=== PATIENT | male | born 1955 | race Caucasian/White ===

== ENCOUNTER 2022-12-02 09:26 | Day surgery (SDC) | payer OTHER, SELFPAY ==
[2022-11-26 13:59] VITALS: BMI 41.7
--- NOTE | 2022-11-29 08:25 | MHC.SHP ---
Pre-Procedural Eval Section A Date of Service: 11/29/22 The patient is an INPATIENT: No Changes since office visit: No Cold of Flu in the past 2 weeks, No New Medical Problems, No Changes in Medication and No Patient answered all questions The History & Physical has been completed within 30 days and I have reviewed it.: Yes Section B Chief Complaint: cataract,trab Allergies: Allergies Allergy/AdvReac Type Severity Reaction Status Date / Time metformin Allergy Unknown Verified 11/13/22 08:51 Plan Diagnosis/Plan: Unchanged I have reviewed the history and physical and performed a pertinent physical examination on my patient. No changes have occurred unless specified. Time Spent With Patient Time: Total time managing care of this patient today ____ minutes.
[2022-12-02 10:22] VITALS: BP 162/77; PULSE 77; RESP 18; TEMP 36.6; O2SAT 96
[2022-12-02 10:30] LABS: Glucose, Whole Blood 178 mg/dL (60-115)
--- NOTE | 2022-12-02 10:31 | P.CONAN_ITS ---
HPI - Anesthesia Eval Consult details Narrative: Right cataract [facility] Past Medical History Medical History ASHD (arteriosclerotic heart disease) BPH (benign prostatic hyperplasia) Depressive disorder Diabetic neuropathy Diabetic retinopathy Elevated cholesterol Extremity edema GERD (gastroesophageal reflux disease) HTN (hypertension) Hx of deep venous thrombosis Insomnia Multiple lipomas Obesity On anticoagulant therapy On beta rajiv at home MARIS on CPAP PLMD (periodic limb movement disorder) Seasonal allergies Type 2 diabetes mellitus treated with insulin Family History Family history of problems with anesthesia: No Surgical History Surgical History History of appendectomy History of esophagogastroduodenoscopy (EGD) Hx of cardiac cath Hx of colonoscopy S/P coronary artery bypass graft x 2 S/P repair of paraesophageal hernia History of Problems with Anesthesia: No Social History Social History Are you a primary healthcare educator to a significant other at home: No Do you presently have visiting nurse or other home services: No Patient Tobacco Use Status: Former Tobacco user Quit Date: 50 yrs ago Tobacco use type: Cigarette Use of substances other than those prescribed or required for medical reasons: Yes Substance Use Frequency: Occasionally Have you been hit, kicked, punched, or otherwise hurt by someone within the past year? If so, by whom?: No Are you DNR?: No Advance Directives: No Advance Directives Information Provided: Yes Advance Directives on File: No Recently lost weight without trying: No Eating poorly because of decreased appetite: No Nutrition Risks: No Nutritional Risk Meds Allergies Allergy/AdvReac Type Severity Reaction Status Date / Time metformin Allergy Unknown Verified 11/13/22 08:51 Active Medications: Current Medications Povidone Iodine (Povidone Iodine 5 % Ophth Soln 30 Ml Bottle) 1 appl EYE-RIGHT PREOP PRN PRN Reason: Pre-Op Surgical Implant Prophy Home Medications Medication Instructions Recorded Confirmed Last Taken Type apixaban 5 mg tablet (Eliquis) 1 tab PO BID 09/13/22 11/13/22 Unknown History atorvastatin 40 mg tablet 1 tab PO DAILY 09/13/22 11/13/22 Unknown History cholecalciferol (vitamin D3) 25 25 mcg PO DAILY 09/13/22 11/13/22 Unknown History mcg (1,000 unit) capsule (Vitamin D3) dorzolamide 22.3 mg-timolol 6.8 1 drp ophthalmic-Right BID 09/13/22 11/13/22 Unknown History mg/mL eye drops dulaglutide 1.5 mg/0.5 mL 0.5 ml subcut QWEEK 09/13/22 11/13/22 Unknown History subcutaneous pen injector (Trulicity) empagliflozin 25 mg tablet 1 tab PO QAM 09/13/22 11/13/22 Unknown History (Jardiance) insulin aspart U-100 100 unit/mL subcut 09/13/22 Unknown History (3 mL) subcutaneous pen (Novolog FlexPen U-100 Insulin aspart) insulin degludec 200 unit/mL (3 75 unit subcut BID 09/13/22 11/13/22 Unknown History mL) subcutaneous pen (Tresiba FlexTouch U-200 insulin) latanoprost 0.005 % eye drops 1 drp ophthalmic-Right BEDTIME 09/13/22 11/13/22 Unknown History lisinopril 20 mg tablet 1 tab PO DAILY 09/13/22 11/13/22 Unknown History lorazepam 2 mg tablet 1 tab PO BEDTIME 09/13/22 11/13/22 Unknown History metoprolol tartrate 100 mg tablet 1 tab PO BID 09/13/22 11/13/22 Unknown History multivitamin 1 tab PO DAILY 09/13/22 11/13/22 Unknown History tamsulosin 0.4 mg capsule 1 cap PO QPM 09/13/22 11/13/22 Unknown History zolpidem 12.5 mg tablet,extended 1 tab PO BEDTIME PRN insomnia 09/13/22 11/13/22 Unknown History release,multiphase Exam Exam Date and Time: December 02, 2022 1031 Height,Weight and Vital Signs: Height 5 ft 10 in Weight 132 kg Last Vital Signs Temp 98 F 12/02/22 10:22 Pulse 77 12/02/22 10:22 Resp 18 12/02/22 10:22 BP 162/77 H 12/02/22 10:22 Pulse Ox 96 12/02/22 10:22 O2 Del Method 12/02/22 10:22 Pertinent Lab Results Pertinent Lab Results: Laboratory Tests 12/02/22 10:26 POC Glucose 178 H Airway Mallampati Class: III TM Dist: <=3cm Neck ROM: Limited Partial: Upper and Lower Loose/Missing/Broken Teeth: Yes, Upper and Lower Heart: s/p CABG Lungs: ok Assessment and Plan Assessment Anesthesia Assessment: Anesthesia Plan Discussed and Chart Reviewed Final Anesthetic Review Family History of Problems with Anesthesia: No History of Problems with Anesthesia: No NPO: Yes ASA Class: IV Final Preanesthetic Review: No Changes in Pt Med Stat, Meds/Allgs Chart Reviewed, Consent Obtained/Reviewed and Anes Risks/Benef Reviewed Patient Risk: High Procedure Risk: Intermediate Anesthetic Plan Anesthetic Plan: MAC: and Agree w/ Assess. and Plan Disposition: Standard PACU
[2022-12-02] MEDS: Cyclopentolate 1 % Ophth Sol 2 ML DRPBTL 1 DROP EYE-RIGHT ×3 (10:37→10:39)
[2022-12-02] MEDS: Tetracaine HCl/PF 0.5% Oph Sol 4 ML DROPS 1 DROP EYE-RIGHT (10:37)
[2022-12-02] MEDS: Tropicamide 1 % Ophth Sol 3 ML BTL 1 DROP EYE-RIGHT ×3 (10:38→10:39)
[2022-12-02] MEDS: Ketorolac Tromethamine 0.5% Op 5 ML DROPS 1 DROP EYE-RIGHT ×3 (10:38→10:39)
[2022-12-02] MEDS: Phenylephrine HCL 2.5% Oph SoL 2 ML BOTTLE 1 DROP EYE-RIGHT ×3 (10:38→10:39)
[2022-12-02] MEDS: Lactated Ringers 1,000 ML 50 ML IVCONT (11:09)
--- NOTE | 2022-12-02 11:25 | P.PCNO_ITS ---
Ophthalmology Procedure Procedure Date of Service: 12/02/22 Ophthalmology Viscoelastic: Healsherrie Ellist Dual Pack Pro Ophthalmology Lenses: TECNIS CR8680 (22.5) Procedure Notes: PREOPERATIVE DIAGNOSIS: Decreased visual acuity right eye secondary to cataract and glaucoma. POSTOPERATIVE DIAGNOSIS: Same PROCEDURE: Right cataract extraction with intraocular lens insertion and trabe culectomy, right eye SURGEON: Larry Avila M.D. ANESTHESIA: Topical/MAC ESTIMATED BLOOD LOSS: None COMPLICATIONS: None After obtaining informed consent, the patient was brought to the operating room suite and placed in the supine position. After adequate sedation per anesthesia, topical drops of Tetracaine were given to the right eye. The eye was then prepped and draped in the usual sterile fashion. The operating room microscope was then positioned over the right eye and a lid speculum placed. 2% Lidocaine was instilled subconjunctivally. After awaiting 30 seconds, a paracentesis was created superiorly. Hemostasis was then achieved using wet field cautery. Mitomycin .4mg/ml was then placed in the conjunctival pocket and held in place for two minutes. The subconjunctival pocket was then irrigated copiously with 20 mls of BSS. Paracentesis was then created. Viscoelastic was then instilled into the anterior chamber. A crescent blade was then utilized to create a partial thickness sclera wound followed by advancement to clear cornea with the crescent blade. A keratome was then utilized to enter the anterior chamber. Capsulotomy forceps were then utilized to create a continuous circular tear capsulotomy. Hydrodissection and hydrodelineation were carried out until adequate mobilization of the nucleus occurred. Phacoemulsification was utilized to remove the dense central nucleus followed by removal of remnant cortical material utilizing the automated aspiration irrigation unit. Viscoelastic was then instilled into the posterior capsular bag followed by placement of a posterior chamber intraocular lens. Attention was then directed to create a trabeculectomy. A Saritha punch was then utilized to create the trabeculectomy. The residual Viscoelastic was then removed utilizing the automated IA machine. The egress of aqueous was evaluated and found to be appropriate. The conjunctiva was then closed with a 9-0 vicryl suture. BSS was then instilled into the anterior chamber creating a superior bleb, without obvious leakage. Intracameral injection of Vigamox 0.3%, 0.1 ml and subtenon injection of Kenalog-40 0.2 ml was given followed by an atropine drop. The patient tolerated the procedure well and will be followed up in the a.m.
[2022-12-02 12:13] VITALS: BP 142/70; PULSE 74; RESP 16; TEMP 37.3; O2SAT 100
[2022-12-02 12:18] VITALS: BP 136/66; PULSE 72; RESP 16; TEMP 36.9; O2SAT 100
== END 2022-12-02 12:30 | disposition home or self-care (01) ==
PROVIDERS: PCP Internal Medicine; Visit Provider Ophthalmology
PROC: (CPT 66984; principal; 2022-12-02 12:00)
DX: H25.11 Age-related nuclear cataract, right eye (principal); H40.1120 Primary open-angle glaucoma, left eye, stage unspecified; H40.033 Anatomical narrow angle, bilateral; H40.89 Other specified glaucoma; H52.4 Presbyopia; I10 Essential (primary) hypertension; E78.00 Pure hypercholesterolemia, unspecified; G47.33 Obstructive sleep apnea (adult) (pediatric); E11.3593 Type 2 diabetes mellitus with proliferative diabetic retinopathy without macular edema, bilateral; E11.40 Type 2 diabetes mellitus with diabetic neuropathy, unspecified; Z79.4 Long term (current) use of insulin; Z79.01 Long term (current) use of anticoagulants; Z79.899 Other long term (current) drug therapy; Z87.891 Personal history of nicotine dependence
CPT/HCPCS: 66984; 66170; 82947; J2250; J3010; J3301; J7315; V2632

== ENCOUNTER 2023-08-07 13:01 | Outpatient (REF) | payer OTHER, SELFPAY ==
[2023-08-07 13:15] VITALS: BMI 38.5
[2023-08-07 13:16] VITALS: BP 137/70; PULSE 88; RESP 16; TEMP 36.5; O2SAT 96
== END 2023-08-07 13:02 | disposition home or self-care (01) ==
LOC: HO.MS 13:01
PROVIDERS: PCP Internal Medicine; Visit Provider Ophthalmology
PROC: (CPT 66761; principal; 2023-08-07 13:00)
DX: H40.032 Anatomical narrow angle, left eye (principal)
CPT/HCPCS: 66761

== ENCOUNTER 2025-11-08 08:39 | Outpatient (AMB) | payer OTHER, SELFPAY ==
--- OUTSIDE RECORDS SUMMARY | 2025-09-19 10:30 | XMS_ITS ---
Author Organization [facility] Address [address] [place] [id number] Care Team Providers Care Web Design Instructor Name Role Phone Colleen GREWAL, Tanner Primary Care Provider Shanice Campos [phone] Encounters Encounter Location Date Provider Diagnosis [address] [address] 09/19/2025 Shanice Elliott Plan Of Treatment No Information Progress Notes * Flex CRAVENDOB: [birth year] (70 yo M)Acc No.[id number]:09/19/2025 Progress Note Patient: Flex HANCOCK Provider: Johann Elliott DPM :1955 A ge:70 Y S ex:Male Date:09/19/2025 Address:[address] [place], [place] [id number] Pcp:Tanner Macias MD Subjective: * Chief Complaints: * * Medical History: Objective: * Vitals: Assessment: Plan: * Treatment: * Images: * The named appointment provid er may or may not be the originator of this progress note, and it is not deemed complete until electronically signed by the appointment provider. Sign off status: Pending * Provider: Johann Elliott DPM Date: Generated for Printi ng/Faxing/eTransmitting on: 1 01/09/2025 09:19 AM EST
--- NOTE | 2025-11-08 08:51 | MHC.OFFVIS ---
Intake Visit Reasons: Urinary retention, BPH, VT Intake Note: New Patient is present for Urinary Retention / Voiding Trial , Enlarged Prtostate patient had a cath change on 11/05/25 has had blood in his urine since Urology Rx:Tamsulosin PVR:187mls Blood Thinners:Eliquis Imaging completed: Abd /Pelvis CT 09/19/25 Application Integration Specialist Required: No Accompanied by: Self / Same As Patient Allergies No Known Allergies Allergy (Verified 11/08/25 08:54) HPI Comments Details: Flex is a pleasant male. He is a patient of Dr. Macias. He is seen for the following urologic conditions - urinary retention - diabetic cystopathy Urinary retention in setting of diabetic cystopathy Had been seen for back pain at [facility] Found to have retention greater than 500 cc Marshall catheter placed Has been on tamsulosin longstanding Failed voiding trial in office today Discussed potential for intermittent catheterization versus Marshall catheter Would rather have Marshall catheter with cap Follow-up 4 weeks cystoscopy with voiding trial Start combination therapy PFSH Medical History (Updated 11/08/25 @ 09:28 by Marcell Underwood MD) Seasonal allergies On beta rajiv at home On anticoagulant therapy Elevated cholesterol MARIS on CPAP Hx of deep venous thrombosis Diabetic neuropathy Diabetic retinopathy PLMD (periodic limb movement disorder) Multiple lipomas Obesity Type 2 diabetes mellitus treated with insulin Insomnia GERD (gastroesophageal reflux disease) Extremity edema Depressive disorder BPH (benign prostatic hyperplasia) HTN (hypertension) ASHD (arteriosclerotic heart disease) Surgical History Hx of cardiac cath S/P repair of paraesophageal hernia Hx of colonoscopy S/P coronary artery bypass graft x 2 History of appendectomy History of esophagogastroduodenoscopy (EGD) Social History Are you a primary team primary care physician to a significant other at home: No Do you presently have visiting nurse or other home services: No Patient Tobacco Use Status: Former Tobacco user Tobacco use type: Cigarette Review of Systems Const Denies chills and Denies fever(s) Card Reports no additional complaints and Denies syncope Resp Denies cough GI Denies abdominal pain and Denies heartburn Reports as per HPI and Denies change in libido Neuro Denies syncope Psych Denies change in libido Endo Denies change in libido Physical Exam Const General: cooperative, healthy appearing, comfortable and no acute distress Orientation/consciousness: patient oriented x3 HEENT Face and sinus: Yes normal facial exam Mouth: moist mucous membranes Neck Neck: Yes normal visual inspection, Yes full ROM and Yes trachea midline Chest Chest palpation & inspection: normal inspection of the chest Resp Effort & Inspection: normal respiratory effort, able to speak in complete sentences and no respiratory distress GI Inspection: Yes normal to inspection Back/Spine/Pelvis Cervical Spine: normal cervical lordosis Thoracic/Lumbar Spine: thoracic and lumbar spine normal to inspection Skin General skin exam: no rashes or lesions noted Neuro General: patient oriented x3, gait normal, tone normal and moves all extremities Extrem General: Yes normal to inspection and Yes capillary refill normal Office Procedures Bladder/Catheter Procedure Details: Patient presents to office for voiding trial s/p urinary retention. 120mls sterile water instilled through catheter, patient tolerated well. Removed 16fr marshall catheter, patient tolerated removal well. Patient not able to void. Dr. Underwood in room for appointment. Per Dr. Underwood, reinsert catheter with flip valve. New 16fr marshall with 10mls inserted. Patient tolerated insertion. Some blood noted after insertion. Education given on the flip valve and to empty every 3-4 hours. patient know how to change management consultant to night bag and has supplies at home. Patient will f/u in 4 weeks for repeat voiding trial. 12431-Ocmaumlneu of Bladder 41654-Qogmwb Temporary Bladder Catheter Procedure code (CPT) selection complete Post Void Residual Post Residual Void Post Void Residual (PVR): 187 63508-Psgo Void Residual by ultrasound Assessment & Plan Assessment & Plan (1) Urinary retention with incomplete bladder emptying: Code(s): R33.9 - Retention of urine, unspecified Category: Medical (2) BPH (benign prostatic hyperplasia): Code(s): N40.0 - Benign prostatic hyperplasia without lower urinary tract symptoms Category: Medical Plan Start finasteride Switch from tamsulosin to terazosin 10 mg Orders: Orders AMB Bladder/Catheter Procedure 11/08/25 R33.9 - Retention of urine, unspecified Medications: New finasteride 5 mg PO DAILY 30 tabs 1RF 30 days R33.9 - Retention of urine, unspecified terazosin 10 mg PO BEDTIME 30 caps 1RF 30 days R33.9 - Retention of urine, unspecified Patient Instructions: This note is constructed using voice recognition software. While every effort has been made to ensure accuracy wastewater engineer errors may have been included. Imaging studies, laboratory and physical exam results were discussed and reviewed in detail. No major barriers to patient understanding were identified. An opportunity to ask questions regarding the treatment plan was provided. All questions were answered. The patient expressed understanding and agreement with the above treatment plan. The patient is aware they should contact our office by phone for worsening of their current condition or the appearance of new urologic symptoms. Compliance is encouraged with any medications and followup testing that is ordered. It is a privilege to participate in the urologic care of your patient. If you have any questions or concerns regarding treatment for the above conditions, or other urologic issues, please do not hesitate to contact me. The office telephone contact is [phone]. Sincerely, Dr Marcell Underwood MD, [facility] - Urology Compassionate Specialist Care for the Genitourinary System Coding Level of Care Code New Pt Level 4 (27726) Diagnoses Urinary retention with incomplete bladder emptying R33.9 BPH (benign prostatic hyperplasia) N40.0 CPT Codes Bladder/Catheter Procedure - CPT: 98034-Mzicjhqacg of Bladder ([id number]) Bladder/Catheter Procedure - CPT: 15701-Exsijl Temporary Bladder Catheter ([id number]) Post Residual Void - PVR CPT Code: 53543-Xxam Void Residual by ultrasound ([id number])
--- OUTSIDE RECORDS SUMMARY | 2025-11-08 09:18 | XMS_ITS | Encounter Summary ---
Author Organization [employer] Address [address] [place] [address] Care Team Providers Care Public Health Sanitarian Name Role Phone Samia Acosta MD Primary Care Provider + Encounter Details Date Type Department Care Team (Late st Contact Info) Description 09/22/2025 Lab Requisition [facility] [address] [facility] [place] [address] Samia Acosta MD [address] [id number] Type 2 diabetes mellitus without complications (CMS/HCC V24, CMS/HCC V28); Cellulitis, unspecified Social History Tobacco Use Types Packs/Day Years Used Date Smoking Tobacco: Never Assessed Sex and Gender Information Value Date Recorded Sex Assigned at Not on file Legal Sex Male 11:14 AM EDT Gender Identity Not on file Sexual Orientation Not on file documented as of this encounter Plan of Treatment Not on file documented as of this encounter Procedures Procedure Name Priority Date/Time Associated Diagnosis Comments COMPLETE BLOOD COUNT Routine 09/23/2025 7:15 AM EDT Type 2 diabetes mellitus without complications (CMS/HCC V24, CMS/HCC V28) Cellulitis, unspecified BASIC METABOLIC PANEL Routine 09/23/2025 7:15 AM EDT Type 2 diabetes mellitus without complications (CMS/HCC V24, CMS/HCC V28) Cellulitis, unspecified documented in this encounter Results * (ABNORMAL) Basic metabolic panel (09/23/2025 7:15 AM EDT) Sodium 140 133 - 145 mmol/L LAB CHEMISTRY METHOD 09/23/2025 9:41 AM EDT [facility] Potassium 3.6 3.5 - 5.5 mmol/L LAB CHEMISTRY METHOD 09/23/2025 9:41 AM [facility] Chloride 109 96 - 110 mmol/L LAB CHEMISTRY METHOD 09/23/2025 9:41 AM [facility] CO2 26 21 - 32 mmol/L LAB CHEMISTRY METHOD 09/23/2025 9:41 AM [facility] Anion Gap 5 3 - 11 LAB CHEMISTRY METHOD 09/23/2025 9:41 AM [facility] Glucose 68(L) 70 - 100 mg/dL LAB CHEMISTRY METHOD 09/23/2025 9:41 AM [facility] BUN 25 5 - 25 mg/dL LAB CHEMISTRY METHOD 09/23/2025 9:41 AM [facility] Creatinine 0.88 0.70 - 1.30 mg/dL LAB CHEMISTRY METHOD 09/23/2025 9:41 AM [facility] eGFR 94 >=60 mL/min/1. 73m2 LAB CHEMISTRY METHOD 09/23/2025 9:41 AM [facility] Comment:Calculation based on the Chronic Kidney Disease Epidemiology Collaboration (CKD-EPI) equation refit without adjustment for race. BUN/Creatinine Ratio 28.4 LAB CHEMISTRY METHOD 09/23/2025 9:41 AM [facility] Calcium 8.3(L) 8.5 - 10.5 mg/dL LAB CHEMISTRY METHOD 09/23/2025 9:41 AM [facility] Blood Venous blood specimen / Unknown Venipuncture / Unknown 09/23/2025 7:15 AM EDT 09/23/2025 8:27 AM EDT us Samia Acosta MD LAB BLOOD ORDERABLES Fin al Result [facility] [address] [place] [address], * Complete blood count (09/23/2025 7:15 AM EDT) [facility] WBC 7.7 4.8 - 10.8 K/mcL LAB HEMETOLOGY METHOD 09/23/2025 9:09 AM [facility] RBC 4.70 4.50 - 5.50 M/mcL LAB HEMETOLOGY METHOD 09/23/2025 9:09 AM [facility] Hemoglobin 14.0 13.5 - 17.5 g/dL LAB HEMETOLOGY METHOD 09/23/2025 9:09 AM [facility] Hematocrit 42.5 42.0 - 54.0 % LAB HEMETOLOGY METHOD 09/23/2025 9:09 AM [facility] MCV 89.7 79.0 - 98.0 FL LAB HEMETOLOGY METHOD 09/23/2025 9:09 AM [facility] MCH 29.5 27.0 - 32.0 pcg LAB HEMETOLOGY METHOD 09/23/2025 9:09 AM [facility] MCHC 32.9 32.0 - 37.0 g/dL LAB HEMETOLOGY METHOD 09/23/2025 9:09 AM [facility] RDW 13.1 11.0 - 15.0 % LAB HEMETOLOGY METHOD 09/23/2025 9:09 AM [facility] Platelets 189 130 - 400 K/mcL LAB HEMETOLOGY METHOD 09/23/2025 9:09 AM [facility] MPV 10.9 7.0 - 11.0 FL LAB HEMETOLOGY METHOD 09/23/2025 9:09 AM [facility] NRBC 0.0 <1.0 % LAB HEMETOLOGY METHOD 09/23/2025 9:09 AM [facility] NRBC Absolute 0.00 <0.10 K/mcL LAB HEMETOLOGY METHOD 09/23/2025 9:09 AM EDT [facility] Blood Venous blood specimen / Unknown Venipuncture / Unknown 09/23/2025 7:15 AM EDT 09/23/2025 8:27 AM EDT us Samia Acosta MD LAB BLOOD ORDERABLES Fin al Result [facility] [address] [place] [address], documented in this encounter Visit Diagnoses Diagnosis Type 2 diabetes mellitus without complications (CMS/HCC V24, CMS/HCC V28) Cellulitis, unspecified documented in this encounter Care Teams Public Health Sanitarian Relationship Specialty Start Date End Date Samia Acosta MD [address] [place] [id number] PCP - General Family Medicine 09/20/25 documented as of this encounter
--- OUTSIDE RECORDS SUMMARY | 2025-11-08 09:18 | XMS_ITS | Encounter Summary ---
Author Organization [facility] Address [address] [place] [address] Care Team Providers Care Yard Pilot Name Role Phone Samia Acosta MD Primary Care Provider + Encounter Details Date Type Department Care Team (Late st Contact Info) Description 09/23/[address] [facility] - Main Lab [address] [facility] [place] [address] Samia Acosta MD [address] [phone] Essential (primary) hypertension Social History Tobacco Use Types Packs/Day Years [...] Associated Diagnosis Comments COMPLETE BLOOD COUNT Routine 09/26/2025 6:54 AM EST Essential (primary) hypertension BASIC METABOLIC PANEL Routine 09/26/2025 6:54 AM EST Essential (primary) hypertension documented in this encounter Results * (ABNORMAL) Basic metabolic panel (09/26/2025 6:54 AM EST) Sodium 141 133 - 145 mmol/L LAB CHEMISTRY METHOD 09/26/2025 12:[address] [facility] Potassium 3.7 3.5 - 5.5 mmol/L LAB CHEMISTRY METHOD 09/26/2025 12:[address] [facility] Chloride 108 96 - 110 mmol/L LAB CHEMISTRY METHOD 09/26/2025 12:22 PM [facility] CO2 24 21 - 32 mmol/L LAB CHEMISTRY METHOD 09/26/2025 12:22 PM [facility] Anion Gap 9 3 - 11 LAB CHEMISTRY METHOD 09/26/2025 12:22 PM [facility] Glucose 68(L) 70 - 100 mg/dL LAB CHEMISTRY METHOD 09/26/2025 12:22 PM [facility] BUN 16 5 - 25 mg/dL LAB CHEMISTRY METHOD 09/26/2025 12:22 PM [facility] Creatinine 0.83 0.70 - 1.30 mg/dL LAB CHEMISTRY METHOD 09/26/2025 12:22 PM [facility] eGFR 95 >=60 mL/min/1. 73m2 LAB CHEMISTRY METHOD 09/26/2025 12:22 PM [facility] Comment:Calculation based on the Chronic Kidney Disease Epidemiology Collaboration (CKD-EPI) equation refit without adjustment for race. BUN/Creatinine Ratio 19.3 LAB CHEMISTRY METHOD 09/26/2025 12:22 PM [facility] Calcium 8.6 8.5 - 10.5 mg/dL LAB CHEMISTRY METHOD 09/26/2025 12:22 PM [facility] Blood Venous blood specimen / Unknown Venipuncture / Unknown 09/26/2025 6:54 AM EST 09/26/2025 11:01 AM EST us Samia Acosta MD LAB BLOOD ORDERABLES Fin al Result [facility] [address] [place] [address], * (ABNORMAL) Complete blood count (09/26/2025 6:54 AM EST) WBC 6.0 4.8 - 10.8 K/mcL LAB HEMETOLOGY METHOD 09/26/2025 11:[address] [facility] RBC 4.80 4.50 - 5.50 M/mcL LAB HEMETOLOGY METHOD 09/26/2025 11:36 AM [facility] Hemoglobin 14.5 13.5 - 17.5 g/dL LAB HEMETOLOGY METHOD 09/26/2025 11:36 AM [facility] Hematocrit 43.7 42.0 - 54.0 % LAB HEMETOLOGY METHOD 09/26/2025 11:36 AM [facility] MCV 90.3 79.0 - 98.0 FL LAB HEMETOLOGY METHOD 09/26/2025 11:36 AM [facility] MCH 30.0 27.0 - 32.0 pcg LAB HEMETOLOGY METHOD 09/26/2025 11:36 AM [facility] MCHC 33.2 32.0 - 37.0 g/dL LAB HEMETOLOGY METHOD 09/26/2025 11:36 AM [facility] RDW 13.0 11.0 - 15.0 % LAB HEMETOLOGY METHOD 09/26/2025 11:36 AM [facility] Platelets 212 130 - 400 K/mcL LAB HEMETOLOGY METHOD 09/26/2025 11:36 AM [facility] MPV 11.3(H) 7.0 - 11.0 FL LAB HEMETOLOGY METHOD 09/26/2025 11:36 AM [facility] NRBC 0.0 <1.0 % LAB HEMETOLOGY METHOD 09/26/2025 11:36 AM [facility] NRBC Absolute 0.00 <0.10 K/mcL LAB HEMETOLOGY METHOD 09/26/2025 11:36 AM [facility] Blood Venous blood specimen / Unknown Venipuncture / Unknown 09/26/2025 6:54 AM EST 09/26/2025 10:59 AM EST us Samia Acosta MD LAB BLOOD ORDERABLES Fin al Result [facility] [address] [place] [address], documented in this encounter Visit Diagnoses Diagnosis Essential (primary) hypertension Unspecified essential hypertension documented in this encounter Care Teams Yard Pilot Relationship Specialty Start Date End Date Samia Acosta MD [address] [place] [id number] PCP - General Family Medicine 09/20/25 documented as of this encounter
--- OUTSIDE RECORDS SUMMARY | 2025-11-08 09:19 | XMS_ITS | Encounter Summary ---
Author Organization [employer] Address [address] [place] [address] Care Team Providers Care Neurology Physician Name Role Phone Samia Acosta MD Primary Care Provider + Encounter Details Date Type Department Care Team (Late st Contact Info) Description 10/09/2025 Lab Requisition [facility] - Main Lab [address] [facility] [place] [address] Samia Acosta MD [address] [address] Essential (primary) hypertension Social History Tobacco Use Types Packs/Day Years Used Date Smoking Tobacco: Never Assessed Sex and Gender Information Value Date Recorded Sex Assigned at Not on file Legal Sex Male 11:14 AM EDT Gender Identity Not on file Sexual Orientation Not on file documented as of this encounter Plan of Treatment Not on file documented as of this encounter Visit Diagnoses Diagnosis Essential (primary) hypertension Unspecified essential hypertension documented in this encounter Care Teams Neurology Physician Relationship Specialty Start Date End Date Samia Acosta MD [address] [address] PCP - General Family Medicine 09/20/25 documented as of this encounter
--- OUTSIDE RECORDS SUMMARY | 2025-11-08 09:19 | XMS_ITS | Clinical Summary ---
Author Organization [address] [facility] Address [address] [place] [address] Phone Care Team Providers Care Chemistry Lecturer Name Role Phone Samia Acosta MD Primary Care Provider + Encounters Date Type Department Care Team Description 10/09/2025 Lab Requisition [facility] - Main Lab [address] [place] [address] Saima Acosta MD Essential (primary) hypertension 09/30/2025 Lab Requisition [facility] [address] [place] [address] Samia Acosta MD Essential (primary) hypertension 09/23/2025 Lab Requisition [facility] - Main Lab [address] [place] [address] Samia Acosta MD Essential (primary) hypertension 09/22/2025 Lab Requisition [facility] - Main Lab [address] [place] [address] Samia Acosta MD Type 2 diabetes mellitus without complications (CMS/HCC V24, CMS/HCC V28); Cellulitis, unspecified 09/22/2025 Lab Requisition [facility] Lab [address] [place] [address] Samia Acosta MD Hematuria, unspecified 09/20/2025 Lab Requisition [facility] - Main Lab [address] [place] [address] Samia Acosta MD Essential (primary) hypertension from Last 3 Months Social History Tobacco Use Types Packs/Day Years Used Date Smoking Tobacco: Never Assessed Sex and Gender Information Value Date Recorded Sex Assigned at Not on file Legal Sex Male 11:14 AM EDT Gender Identity Not on file Sexual Orientation Not on file Plan of Treatment Health Maintenance Due Date Last Done Comments Colorectal Cancer Screening: Colonoscopy 1957 Diabetes: Annual Foot Exam 1967 Diabetes: Annual Retina Eye Exam 1967 DTaP,Tdap,and Td Vaccines (1 - Tdap) 1976 Pneumococcal Vaccine: 50+ Years (1 of 2 - PCV) 1976 Zoster Vaccines (1 of 2) 2007 Depression Screening 11/24/2024 COVID-19 Vaccine (1 - 2024- season) 2025 Influenza Vaccine (#1) 2025 Abdominal Aortic Aneurysm (AAA) Screen 09/20/2025 Cholesterol Screening (Lipid Panel) 09/20/2025 Falls Risk Assessment 09/20/2025 Hepatitis C Screening 09/20/2025 Medicare Annual Wellness Visit 09/20/2025 Social Influencers of Health Screening 09/20/2025 Diabetes: Annual Urine Albumin-Creatinine Ratio (uACR) 09/22/2025 Diabetes: Blood Sugar Control Test (HGBA1C) 03/21/2026 09/20/2025 Diabetes: Annual GFR (Glomerular Filtration Rate) 10/03/2026 10/03/2025, 09/26/2025, 09/23/2025, Additional history exists Hypertension/CHF/CAD Annual BMP Blood Test 10/03/2026 10/03/2025, 09/26/2025, 09/23/2025, Additional history exists RSV Immunization Adult Patients (1 - 1-dose 75+ series) 2032 HIB Vaccines Aged Out No longer eligi ble based on patient's age to complete this topic HPV Vaccines Aged Out No longer eligi ble based on patient's age to complete this topic Hepatitis A Vaccines Aged Out No long er eligible based on patient's age to complete this topic Hepatitis B Vaccines Aged Out No long er eligible based on patient's age to complete this topic IPV Vaccines Aged Out No longer eligi ble based on patient's age to complete this topic MMR Vaccines Aged Out No longer eligi ble based on patient's age to complete this topic Meningococcal ACWY Vaccine Aged Out N o longer eligible based on patient's age to complete this topic Meningococcal B Vaccine Aged Out No l onger eligible based on patient's age to complete this topic RSV Immunization Patients Under 20 months Aged Out No longer eligible based on patient's age to complete this topic Varicella Vaccines Aged Out No longer eligible based on patient's age to complete this topic Procedures Procedure Name Priority Date/Time Associated Diagnosis Comments BASIC METABOLIC PANEL Routine 10/03/2025 7:53 AM EST Essential (primary) hypertension COMPLETE BLOOD COUNT Routine 10/03/2025 7:53 AM EST Essential (primary) hypertension BASIC METABOLIC PANEL Routine 09/26/2025 6:54 AM EST Essential (primary) hypertension COMPLETE BLOOD COUNT Routine 09/26/2025 6:54 AM EST Essential (primary) hypertension BASIC METABOLIC PANEL Routine 09/23/2025 7:15 AM EDT Type 2 diabetes mellitus without complications (CMS/HCC V24, CMS/HCC V28) Cellulitis, unspecified COMPLETE BLOOD COUNT Routine 09/23/2025 7:15 AM EDT Type 2 diabetes mellitus without complications (CMS/HCC V24, CMS/HCC V28) Cellulitis, unspecified URINALYSIS WITH REFLEX MICROSCOPIC Routine 09/22/2025 2:00 PM EDT Hematuria, unspecified URINALYSIS WITH REFLEX MICROSCOPIC Routine 09/22/2025 2:00 PM EDT Hematuria, unspecified CULTURE URINE Routine 09/22/2025 2:00 PM EDT Hematuria, unspecified HEMOGLOBIN A1C Routine 09/20/2025 4:56 AM EDT Essential (primary) hypertension BASIC METABOLIC PANEL Routine 09/20/2025 4:56 AM EDT Essential (primary) hypertension COMPLETE BLOOD COUNT Routine 09/20/2025 4:56 AM EDT Essential (primary) hypertension from 3 Months Results * (ABNORMAL) Complete blood count (10/03/2025 7:53 AM EST) Only the most recent of4 resultswithin the time period is included. [facility] Signature WBC 7.0 4.8 - 10.8 K/mcL LAB HEMETOLOGY METHOD 10/03/2025 11:[address] [facility] RBC 4.90 4.50 - 5.50 M/mcL LAB HEMETOLOGY METHOD 10/03/2025 11:[address] [facility] Hemoglobin 14.5 13.5 - 17.5 g/dL LAB HEMETOLOGY METHOD 10/03/2025 11:[address] [facility] Hematocrit 44.4 42.0 - 54.0 % LAB HEMETOLOGY METHOD 10/03/2025 11:[address] [facility] MCV 90.6 79.0 - 98.0 FL LAB HEMETOLOGY METHOD 10/03/2025 11:[address] [facility] MCH 29.6 27.0 - 32.0 pcg LAB HEMETOLOGY METHOD 10/03/2025 11:[address] [facility] MCHC 32.7 32.0 - 37.0 g/dL LAB HEMETOLOGY METHOD 10/03/2025 11:[address] [facility] RDW 13.1 11.0 - 15.0 % LAB HEMETOLOGY METHOD 10/03/2025 11:[address] [facility] Platelets 218 130 - 400 K/mcL LAB HEMETOLOGY METHOD 10/03/2025 11:[address] [facility] MPV 11.2(H) 7.0 - 11.0 FL LAB HEMETOLOGY METHOD 10/03/2025 11:[address] [facility] NRBC 0.0 <1.0 % LAB HEMETOLOGY METHOD 10/03/2025 11:[address] [facility] NRBC Absolute 0.00 <0.10 K/mcL LAB HEMETOLOGY METHOD 10/03/2025 11:[address] [facility] Blood Venous blood specimen / Unknown Venipuncture / Unknown 10/03/2025 7:53 AM EST 10/03/2025 10:46 AM EST us Samia Acosta MD LAB BLOOD ORDERABLES Fin al Result [facility] [address] [place] [address], [place] [phone] * (ABNORMAL) Basic metabolic panel (10/03/2025 7:53 AM EST) Only the most recent of4 resultswithin the time period is included. Sodium 140 133 - 145 mmol/L LAB CHEMISTRY METHOD 10/03/2025 12:[address] [facility] Potassium 3.7 3.5 - 5.5 mmol/L LAB CHEMISTRY METHOD 10/03/2025 12:[address] [facility] Chloride 104 96 - 110 mmol/L LAB CHEMISTRY METHOD 10/03/2025 12:[address] [facility] CO2 28 21 - 32 mmol/L LAB CHEMISTRY METHOD 10/03/2025 12:[address] [facility] Anion Gap 8 3 - 11 LAB CHEMISTRY METHOD 10/03/2025 12:[address] [facility] Glucose 68(L) 70 - 100 mg/dL LAB CHEMISTRY METHOD 10/03/2025 12:[address] [facility] BUN 15 5 - 25 mg/dL LAB CHEMISTRY METHOD 10/03/2025 12:[address] [facility] Creatinine 0.91 0.70 - 1.30 mg/dL LAB CHEMISTRY METHOD 10/03/2025 12:[address] [facility] eGFR 92 >=60 mL/min/1. 73m2 LAB CHEMISTRY METHOD 10/03/2025 12:[address] [facility] Comment:Calculation based on the Chronic Kidney Disease Epidemiology Collaboration (CKD-EPI) equation refit without adjustment for race. BUN/Creatinine Ratio 16.5 LAB CHEMISTRY METHOD 10/03/2025 12:[address] [facility] Calcium 8.7 8.5 - 10.5 mg/dL LAB CHEMISTRY METHOD 10/03/2025 12:[address] [facility] Blood Venous blood specimen / Unknown Venipuncture / Unknown 10/03/2025 7:53 AM EST 10/03/2025 10:46 AM EST us Samia Acosta MD LAB BLOOD ORDERABLES Fin al Result [facility] [address] [place] [address], * (ABNORMAL) Urinalysis with reflex microscopic (09/22/2025 2:00 PM EDT) Specific [place] Urine 1.030 1.003 - 1.030 LAB URINALYSIS - AUTOMATED METHOD 09/22/2025 3:55 PM [facility] pH, Urine 5.5 5.0 - 8.0 pH LAB URINALYSIS - AUTOMATED METHOD 09/22/2025 3:55 PM [facility] Leukocytes, Urine Small(A) Negative LAB URINALYSIS - AUTOMATED METHOD 09/22/2025 3:55 PM [facility] Nitrite, Urine Negative Negative LAB URINALYSIS - AUTOMATED METHOD 09/22/2025 3:55 PM [facility] Protein, Urine 300(A) <=Trace mg/dL LAB URINALYSIS - AUTOMATED METHOD 09/22/2025 3:55 PM [facility] Glucose, Urine >=1000(A) Negative mg/dL LAB URINALYSIS - AUTOMATED METHOD 09/22/2025 3:55 PM EDT [facility] Ketones, Urine Trace(A) Negative mg/dL LAB URINALYSIS - AUTOMATED METHOD 09/22/2025 3:55 PM T [facility] Urobilinogen , Urine 1.0 0.2 - 1.0 mg/dL LAB URINALYSIS - AUTOMATED METHOD 09/22/2025 3:55 PM EDT [facility] Bilirubin, Urine Small(A) Negative LAB URINALYSIS - AUTOMATED METHOD 09/22/2025 3:55 PM EDT [facility] Blood, Urine Large(A) Negative LAB URINALYSIS - AUTOMATED METHOD 09/22/2025 3:55 PM [facility] RBC, Urine 1,078.5(H) 0 - 4 /HPF LAB URINALYSIS - AUTOMATED METHOD 09/22/2025 3:55 PM [facility] WBC, Urine 144.2(H) 0 - 4 /HPF LAB URINALYSIS - AUTOMATED METHOD 09/22/2025 3:55 PM [facility] Squamous Epithelial, Urine 5 0 - 60 /LPF LAB URINALYSIS - AUTOMATED METHOD 09/22/2025 3:55 PM [facility] Bacteria, Urine Negative Negative /HPF LAB URINALYSIS - AUTOMATED METHOD 09/22/2025 3:55 PM [facility] Hyaline Casts, Urine 11.2(H) 0 - 3 /LPF LAB URINALYSIS - AUTOMATED METHOD 09/22/2025 3:55 PM [facility] Urine Urine specimen obtained by clean catch procedure / Unknown 09/22/2025 2:00 PM EDT 09/22/2025 3:51 PM EDT us Samia Acosta MD LAB URINE ORDERABLES Fin al Result [facility] [address] [place] [address], [place] [phone] * Culture urine (09/22/2025 2:00 PM EDT) Culture, Urine <10,000 CFU/mL gram positive cocci, insignificant count, no further workup 09/24/2025 11:11 AM EDT [facility] Urine Urine specimen obtained by clean catch procedure / Unknown 09/22/2025 2:00 PM EDT 09/22/2025 3:51 PM EDT Narrative [facility] - 09/24/2025 11:11 AM EDT 5000 CFU/mL Samia Acosta MD LAB MICROBIOLOGY - GENER AL ORDERABLES Final Result Performing Organization Address [facility]/ZIP Co de Phone Number [facility] [address] [place] [address], * (ABNORMAL) Hemoglobin A1c (09/20/2025 4:56 AM EDT) Hemoglobin A1C 6.6(H) <6.5 % LAB CHEMISTRY METHOD 09/20/2025 1:25 PM EDT [facility] Mean Bld Glu Estim. 143 mg/dL LAB CHEMISTRY METHOD 09/20/2025 1:25 PM EDT [facility] Blood Venous blood specimen / Unknown Venipuncture / Unknown 09/20/2025 4:56 AM EDT 09/20/2025 11:18 AM EDT Samia Acosta MD LAB BLOOD ORDERABLES Fin al Result [facility] [address] [place] [address], [place] [phone] from Last 3 Months Insurance [place]ICA[place] - [place] MEDICARE [facility] MEDICARE Member Subscriber Plan / Payer (Ef fective 2022-Present) Name:Flex Mejia Relation to Subscriber:Self Name:Flex Mejia Payer ID:[id number] Group ID:[id number] Type:Not on file Address: [address] [place] [address] Care Teams Chemistry Lecturer Relationship Specialty Start Date End Date Samia Acosta MD [address] [address] PCP - General Family Medicine 09/20/25
--- OUTSIDE RECORDS SUMMARY | 2025-11-08 09:19 | XMS_ITS | Encounter Summary ---
Author Organization [employer] Address [address] [place] [address] Care Team Providers Care Credit Control Manager Name Role Phone Samia Acosta MD Primary Care Provider + Encounter Details Date Type Department Care Team (Late st Contact Info) Description 09/30/2025 Lab Requisition [facility] - Main Lab [address] [facility] [place] [address] Samia Acosta MD [address] [phone] Essential (primary) hypertension Social History Tobacco Use [...] Associated Diagnosis Comments COMPLETE BLOOD COUNT Routine 10/03/2025 7:53 AM EST Essential (primary) hypertension BASIC METABOLIC PANEL Routine 10/03/2025 7:53 AM EST Essential (primary) hypertension documented in this encounter Results * (ABNORMAL) Basic metabolic panel (10/03/2025 7:53 AM EST) Sodium 140 133 - 145 mmol/L LAB CHEMISTRY METHOD 10/03/2025 12:00 PM EST [facility] Potassium 3.7 3.5 - 5.5 mmol/L LAB CHEMISTRY METHOD 10/03/2025 12:00 PM [facility] Chloride 104 96 - 110 mmol/L LAB CHEMISTRY METHOD 10/03/2025 12:00 PM [facility] CO2 28 21 - 32 mmol/L LAB CHEMISTRY METHOD 10/03/2025 12:00 PM [facility] Anion Gap 8 3 - 11 LAB CHEMISTRY METHOD 10/03/2025 12:00 PM [facility] Glucose 68(L) 70 - 100 mg/dL LAB CHEMISTRY METHOD 10/03/2025 12:00 PM [facility] BUN 15 5 - 25 mg/dL LAB CHEMISTRY METHOD 10/03/2025 12:00 PM [facility] Creatinine 0.91 0.70 - 1.30 mg/dL LAB CHEMISTRY METHOD 10/03/2025 12:00 PM [facility] eGFR 92 >=60 mL/min/1. 73m2 LAB CHEMISTRY METHOD 10/03/2025 12:00 PM [facility] Comment:Calculation based on the Chronic Kidney Disease Epidemiology Collaboration (CKD-EPI) equation refit without adjustment for race. BUN/Creatinine Ratio 16.5 LAB CHEMISTRY METHOD 10/03/2025 12:00 PM [facility] Calcium 8.7 8.5 - 10.5 mg/dL LAB CHEMISTRY METHOD 10/03/2025 12:00 PM [facility] Blood Venous blood specimen / Unknown Venipuncture / Unknown 10/03/2025 7:53 AM EST 10/03/2025 10:46 AM EST us Samia Acosta MD LAB BLOOD ORDERABLES Fin al Result [facility] [address] [place] [address], * (ABNORMAL) Complete blood count (10/03/2025 7:53 AM EST) WBC 7.0 4.8 - 10.8 K/mcL LAB HEMETOLOGY METHOD 10/03/2025 11:12 AM [facility] RBC 4.90 4.50 - 5.50 M/mcL LAB HEMETOLOGY METHOD 10/03/2025 11:12 AM [facility] Hemoglobin 14.5 13.5 - 17.5 g/dL LAB HEMETOLOGY METHOD 10/03/2025 11:12 AM [facility] Hematocrit 44.4 42.0 - 54.0 % LAB HEMETOLOGY METHOD 10/03/2025 11:12 AM [facility] MCV 90.6 79.0 - 98.0 FL LAB HEMETOLOGY METHOD 10/03/2025 11:12 AM [facility] MCH 29.6 27.0 - 32.0 pcg LAB HEMETOLOGY METHOD 10/03/2025 11:12 AM [facility] MCHC 32.7 32.0 - 37.0 g/dL LAB HEMETOLOGY METHOD 10/03/2025 11:12 AM [facility] RDW 13.1 11.0 - 15.0 % LAB HEMETOLOGY METHOD 10/03/2025 11:12 AM [facility] Platelets 218 130 - 400 K/mcL LAB HEMETOLOGY METHOD 10/03/2025 11:12 AM [facility] MPV 11.2(H) 7.0 - 11.0 FL LAB HEMETOLOGY METHOD 10/03/2025 11:12 AM [facility] NRBC 0.0 <1.0 % LAB HEMETOLOGY METHOD 10/03/2025 11:12 AM [facility] NRBC Absolute 0.00 <0.10 K/mcL LAB HEMETOLOGY METHOD 10/03/2025 11:12 AM [facility] Blood Venous blood specimen / Unknown Venipuncture / Unknown 10/03/2025 7:53 AM EST 10/03/2025 10:46 AM EST us Samia Acosta MD LAB BLOOD ORDERABLES Fin al Result [facility] [address] [place] [address], documented in this encounter Visit Diagnoses Diagnosis Essential (primary) hypertension Unspecified essential hypertension documented in this encounter Care Teams Credit Control Manager Relationship Specialty Start Date End Date Samia Acosta MD [address] [place] [id number] PCP - General Family Medicine 09/20/25 documented as of this encounter
--- OUTSIDE RECORDS SUMMARY | 2025-11-08 09:19 | XMS_ITS | Encounter Summary ---
Author Organization [employer] Address [address] [place] [address] Care Team Providers Care Drum Operator Name Role Phone Samia Acosta MD Primary Care Provider + Encounter Details Date Type Department Care Team (Late st Contact Info) Description 09/20/2025 Lab Requisition [facility] - Main Lab 299 [facility] [place] [address] Samia Acosta MD [address] [phone] Essential (primary) hypertension Social History Tobacco Use [...] Associated Diagnosis Comments COMPLETE BLOOD COUNT Routine 09/20/2025 4:56 AM EDT Essential (primary) hypertension HEMOGLOBIN A1C Routine 09/20/2025 4:56 AM EDT Essential (primary) hypertension BASIC METABOLIC PANEL Routine 09/20/2025 4:56 AM EDT Essential (primary) hypertension documented in this encounter Results * (ABNORMAL) Hemoglobin A1c (09/20/2025 4:56 AM EDT) Hemoglobin A1C 6.6(H) <6.5 % LAB CHEMISTRY METHOD 09/20/2025 1:25 PM EDT [facility] Mean Bld Glu Estim. 143 mg/dL LAB CHEMISTRY METHOD 09/20/2025 1:25 PM EDT [facility] Blood Venous blood specimen / Unknown Venipuncture / Unknown 09/20/2025 4:56 AM EDT 09/20/2025 11:18 AM EDT us Samia Acosta MD LAB BLOOD ORDERABLES Fin al Result [facility] [address] [place] [address], * (ABNORMAL) Basic metabolic panel (09/20/2025 4:56 AM EDT) Sodium 140 133 - 145 mmol/L LAB CHEMISTRY METHOD 09/20/2025 1:17 PM [facility] Potassium 3.1(L) 3.5 - 5.5 mmol/L LAB CHEMISTRY METHOD 09/20/2025 1:17 PM [facility] Chloride 106 96 - 110 mmol/L LAB CHEMISTRY METHOD 09/20/2025 1:17 PM [facility] CO2 26 21 - 32 mmol/L LAB CHEMISTRY METHOD 09/20/2025 1:17 PM [facility] Anion Gap 8 3 - 11 LAB CHEMISTRY METHOD 09/20/2025 1:17 PM [facility] Glucose 40(L) 70 - 100 mg/dL LAB CHEMISTRY METHOD 09/20/2025 1:17 PM [facility] Comment:Results verified by repeat testing BUN 19 5 - 25 mg/dL LAB CHEMISTRY METHOD 09/20/2025 1:17 PM [facility] Creatinine 0.84 0.70 - 1.30 mg/dL LAB CHEMISTRY METHOD 09/20/2025 1:17 PM [facility] eGFR 95 >=60 mL/min/1. 73m2 LAB CHEMISTRY METHOD 09/20/2025 1:17 PM [facility] Comment:Calculation based on the Chronic Kidney Disease Epidemiology Collaboration (CKD-EPI) equation refit without adjustment for race. BUN/Creatinine Ratio 22.6 LAB CHEMISTRY METHOD 09/20/2025 1:17 PM EDT [facility] Calcium 8.7 8.5 - 10.5 mg/dL LAB CHEMISTRY METHOD 09/20/2025 1:17 PM T [facility] Blood Venous blood specimen / Unknown Venipuncture / Unknown 09/20/2025 4:56 AM EDT 09/20/2025 11:18 AM EDT us Samia Acosta MD LAB BLOOD ORDERABLES Fin al Result [facility] [address] [place] [address], * Complete blood count (09/20/2025 4:56 AM EDT) WBC 7.8 4.8 - 10.8 K/mcL LAB HEMETOLOGY METHOD 09/20/2025 11:49 AM [facility] RBC 5.00 4.50 - 5.50 M/mcL LAB HEMETOLOGY METHOD 09/20/2025 11:49 AM [facility] Hemoglobin 14.9 13.5 - 17.5 g/dL LAB HEMETOLOGY METHOD 09/20/2025 11:49 AM [facility] Hematocrit 45.4 42.0 - 54.0 % LAB HEMETOLOGY METHOD 09/20/2025 11:49 AM [facility] MCV 90.8 79.0 - 98.0 FL LAB HEMETOLOGY METHOD 09/20/2025 11:49 AM [facility] MCH 29.8 27.0 - 32.0 pcg LAB HEMETOLOGY METHOD 09/20/2025 11:49 AM [facility] MCHC 32.8 32.0 - 37.0 g/dL LAB HEMETOLOGY METHOD 09/20/2025 11:49 AM EDT [facility] RDW 13.2 11.0 - 15.0 % LAB HEMETOLOGY METHOD 09/20/2025 11:49 AM EDT [facility] Platelets 217 130 - 400 K/mcL LAB HEMETOLOGY METHOD 09/20/2025 11:49 AM EDT [facility] MPV 10.8 7.0 - 11.0 FL LAB HEMETOLOGY METHOD 09/20/2025 11:49 AM EDT [facility] NRBC 0.0 <1.0 % LAB HEMETOLOGY METHOD 09/20/2025 11:49 AM EDT [facility] NRBC Absolute 0.00 <0.10 K/mcL LAB HEMETOLOGY METHOD 09/20/2025 11:49 AM EDT [facility] Blood Venous blood specimen / Unknown Venipuncture / Unknown 09/20/2025 4:56 AM EDT 09/20/2025 11:18 AM EDT us Samia Acosta MD LAB BLOOD ORDERABLES Fin al Result [facility] [address] [place] [address], documented in this encounter Visit Diagnoses Diagnosis Essential (primary) hypertension Unspecified essential hypertension documented in this encounter Care Teams Drum Operator Relationship Specialty Start Date End Date Samia Acosta MD [address] [place] [id number] PCP - General Family Medicine 09/20/25 documented as of this encounter
--- OUTSIDE RECORDS SUMMARY | 2025-11-08 09:19 | XMS_ITS | Patient Health Record ---
Author Organization [facility] Address [address] [place] [address] Care Team Providers Care Service Line Layer Name Role Phone Tanner Macias MD Primary Care Provider Romaine Shanice Kelsey Unavailable [phone] Allergies No Known Allergies Results Component Value Reference Range Notes X ray : Foot, right 3V Reviewed date:02/17/2025 05:19:45 PM Interpretation:See Examination above Performing Lab: Notes/Report: See Examination above HEMOGLOBIN A1C (GLYCOHEMOGLO BIN) Reviewed date:02/17/2025 10:24:49 AM Interpretation: Performing Lab: Notes/Report: HEMOGLOBIN A1C % (HH) 7.8 HEMOGLOBIN A1C (GLYCOHEMOGLO BIN) Reviewed date:06/20/2025 11:18:09 AM Interpretation: Performing Lab: Notes/Report: HEMOGLOBIN A1C % (HH) 7.7 Reason For Referral No Information Medications Medication SIG (Take, Route, Frequency, Duration) Notes Start Date End Date Status Multi Vitamin - 1 tablet Orally Once a day; Duration: 30 day(s) Active Metoprolol Tartrate 100 MG 1 tablet with food Orally Twice a day; Duration: 30 day(s) Active NovoLOG 100 UNIT/ML as directed Subcutaneous Active Zolpidem Tartrate No t-Taking Eliquis 5 MG as directed Orally Not-Taking Dorzolamide HCl 2 % 1 drop into affected eye Ophthalmic Three times a day Not-Taking Cephalexin 500 MG 1 capsule Orally Three times a day; Duration: 10 days Active Augmentin 500-125 MG 1 tablet Orally every 12 hrs; Duration: 7 day(s) 02/21/2025 Active Amoxicillin-Pot Clavulanate 875-125 MG TAKE ONE TABLET BY MOUTH EVERY 12 HOURS Oral; Duration: 7 Days Active Tamsulosin HCl 0.4 MG 1 capsule Orally Once a day; Duration: 30 day(s) Not-Taking Multivitamin - 1 tablet Orally Once a day; Duration: 30 day(s) Not-Taking Tamsulosin HCl 0.4 MG 1 capsule Orally Once a day; Duration: 30 day(s) Active Vitamin D3 25 MCG (1000 UT) 1 capsule Orally Once a day; Duration: 30 day(s) Active Zolpidem Tartrate ER 12.5 MG 1 tablet at bedtime as needed Orally Once a day Active Ammonium Lactate 12 % 1 application Externally Twice a day; Duration: 30 days Active Tresiba FlexTouch 100 UNIT/ML as directed Subcutaneous Not-Taking Trulicity 0.75 MG/0.5ML as directed Subcutaneous once a week Not-Taking Dorzolamide HCl 2 % 1 drop into affected eye Ophthalmic Three times a day Not-Taking Lantus Active Latanoprost 0.005 % 1 drop into affected eye in the evening Ophthalmic Once a day Not-Taking Eliquis 5 MG as directed Orally Twice a day Active Vitamin D3 25 MCG (1000 UT) 1 capsule Orally Once a day; Duration: 30 day(s) Not-Taking Jardiance 25 MG 1 tablet Orally Once a day; Duration: 30 day(s) Active Tresiba 100 UNIT/ML as directed Subcutaneous three times a day Not-Taking Lisinopril 20 MG 1 tablet Orally Once a day; Duration: 30 day(s) Active LORazepam 2 MG 1 tablet at bedtime as needed Orally Once a day Active Extra Depth Orthopedic Shoes (1 Pair) with Customized Heat Molded Multidensity Innersoles (3 Pair) as directed Dx: NIDDM/Polyneuropathy (E11.42), Hammertoe Foot Deformity (M20.41,M20.42), Preulcerative Skin Lesion(s) (L85.1 03/14/2025 Active Atorvastatin Calcium 40 MG 1 tablet Orally Once a day; Duration: 30 day(s) Not-Taking Ozempic Active Jardiance 25 MG 1 tablet Orally Once a day; Duration: 30 day(s) Not-Taking Atorvastatin Calcium 40 MG 1 tablet Orally Once a day; Duration: 30 day(s) Active Lisinopril 20 MG 1 tablet Orally Once a day; Duration: 30 day(s) Not-Taking Bevacizumab eye injection Acti ve Metoprolol Tartrate 100 MG 1 tablet with food Orally Twice a day; Duration: 30 day(s) Not-Taking Immunizations Vaccine Route Administration Date Status Comme nts Influenza Unknown 08/23/2022 Administered Influenza Unknown 07/25/2023 Administered Influenza Unknown 07/25/2024 Administered COVID-19 Pfizer BioNTech Vaccine Unknown 08/31/2021 Administered 1st 02/02/2021 2nd 02/24/2021 Social History Tobacco Use: Social History Observation Description Date Details (start date - stop date) Never Smoker NA - NA Tobacco Use/Smoking Question Answer Notes Are you a: nonsmoker Alcohol Screen Question Answer Notes Did you have a drink containing alcohol in the p ast year? No Points 0 Interpretation Negative Tobacco use other than smoking: Question Answer Notes Are you an other tobacco user? No AUDIT-C (Standard) Question Answer Notes Did you have a drink containing alcohol in the p ast year? 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) Active confirmed Vital Signs Blood pressure diastolic 85 mm Hg 07/07/2025 Height 1hh12ys in 07/07/2025 Blood pressure systolic 122 mm Hg 07/07/2025 Weight 280 lbs 07/07/2025 BMI 39.05 kg/m2 07/07/2025 Procedures Procedure Date Ordered Date Performed Result Body Sit e 70110-HEJGHTJ NAIL, 6 OR MORE 12/20/2024 N/A 23873-GSCN SKIN LESIONS, OVER 4 12/20/2024 N/A 66313-FHCMKGB SKIN/TISSUE 02/17/2025 N/A 84521-LLNEPOF SKIN/TISSUE 03/03/2025 N/A 13052-VSMDHFE NAIL, 6 OR MORE 03/14/2025 N/A 76903-ZLMC SKIN LESIONS, OVER 4 03/14/2025 N/A 98873-XNNWTTI NAIL, 6 OR MORE 06/20/2025 N/A 80516-QIJPFQD SKIN/TISSUE 06/20/2025 N/A 04453-WKVY SKIN LESIONS, OVER 4 06/20/2025 N/A 37226- Debride <25 sq cm 07/07/2025 N/A Encounters Encounter Location Date Provider Diagnosis [address] [address] 12/20/2024 Shnaice Black Type 2 diabetes mellitus with diabetic polyneuropathy E11.42 and Tinea unguium B35.[address] [address] 02/17/2025 Shanice Black Cellulitis of foot, right L03.115 ; Neuropathic ulcer of right heel with fat layer exposed L97.412 ; Hammer toe of right foot M20.41 and 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 [address] [address] 03/03/2025 Shanice Black Cellulitis of foot, right L03.115 ; Neuropathic ulcer of right heel with fat layer exposed L97.412 ; Hammer toe of right foot M20.41 and 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 [address] [address] 03/14/2025 Shanice Black Type 2 diabetes mellitus with diabetic polyneuropathy E11.42 ; Other hammer toe(s) (acquired), right foot M20.41 ; Tinea unguium B35.1 and Other hammer toe(s) (acquired), left foot M20.[address] [address] 06/20/2025 Shanice Black Tinea unguium B35.1 ; Type 2 diabetes mellitus with diabetic polyneuropathy E11.42 and Neuropathic ulcer of right foot with fat layer exposed L97.[address] [address] 07/07/2025 Shanice Black Type 2 diabetes mellitus with diabetic polyneuropathy E11.42 and Neuropathic ulcer of right foot, limited to breakdown of skin L97.[address] [place] [address] 02/15/2025 [facility] [address] [address] 02/17/2025 Shanice Earl [facility] [address] [address] 09/16/2025 Shanice Elliott [facility] Encounter Date Diagnosis (ICD Code) Assessment Notes Treatment Notes Treatment Clinical Notes Section Notes 12/20/2024 Type 2 diabetes mellitus with diabetic polyneuropathy (ICD-10 - E11.42) 02/17/2025 Cellulitis of foot, right (ICD-10 - L03.115) 02/17/2025 Neuropathic ulcer of right heel with fat layer exposed (ICD-10 - L97.412) Response to treatment Nonapplicable Patient Educated with: WOUND CARE INSTRUCTIONS. pdf (WOUND CARE INSTRUCTIONS. pdf) 03/03/2025 Cellulitis of foot, right (ICD-10 - L03.115) 03/03/2025 Neuropathic ulcer of right heel with fat layer exposed (ICD-10 - L97.412) Response to treatment - Improvement Patient Educated with: WOUND CARE INSTRUCTIONS. pdf (WOUND CARE INSTRUCTIONS. pdf) 03/14/2025 Other hammer toe(s) (acquired), right foot (ICD-10 - M20.41) Patient Educated with: DIABETIC FOOT CARE INSTRUCTIONS. pdf (DIABETIC FOOT CARE INSTRUCTIONS. pdf) 03/14/2025 Type 2 diabetes mellitus with diabetic polyneuropathy (ICD-10 - E11.42) 06/20/2025 Tinea unguium (ICD-10 - B35.1) 06/20/2025 Type 2 diabetes mellitus with diabetic polyneuropathy (ICD-10 - E11.42) 07/07/2025 Type 2 diabetes mellitus with diabetic polyneuropathy (ICD-10 - E11.42) 07/07/2025 Neuropathic ulcer of right foot, limited to breakdown of skin (ICD-10 - L97.511) 06/20/2025 Neuropathic ulcer of right foot with fat layer exposed (ICD-10 - L97.512) Patient Educated with: WOUND CARE INSTRUCTIONS. pdf (WOUND CARE INSTRUCTIONS. pdf) 03/14/2025 Tinea unguium (ICD-10 - B35.1) 03/03/2025 Hammer toe of right foot (ICD-10 - M20.41) 02/17/2025 Hammer toe of right foot (ICD-10 - M20.41) 12/20/2024 Tinea unguium (ICD-10 - B35.1) 02/17/2025 Plantarflexion deformity of right foot (ICD-10 - M21.6X1) 03/03/2025 Plantarflexion deformity of right foot (ICD-10 - M21.6X1) 03/14/2025 Other hammer toe(s) (acquired), left foot (ICD-10 - M20.42) 06/20/2025 Other Plan Of Treatment Pending Test Test Name Order Date *Wound Culture 02/17/2025 68999-ZWHIYEZ NAIL, 6 OR MORE 03/14/2025 78957-MSTIDNM NAIL, 6 OR MORE 06/20/2025 28240-ZEHWFKF NAIL, 6 OR MORE 01/08/2024 83477-QGUOZLW NAIL, 6 OR MORE 03/11/2024 65261-FQMQYNS NAIL, 6 OR MORE 2024 08568-BEGNGBB NAIL, 6 OR MORE 09/02/2024 73619-JFEFXME NAIL, 6 OR MORE 12/20/2024 35414-CVQJNHP NAIL, 6 OR MORE 09/25/2020 82649-NPSPXRJ NAIL, 6 OR MORE 12/25/2020 91169-ZIVBQNM NAIL, 6 OR MORE 03/19/2021 23194-ABXUFPA NAIL, 6 OR MORE 06/18/2021 47493-VWYFCPC NAIL, 6 OR MORE 09/24/2021 56732-YMLUBDA NAIL, 6 OR MORE 01/07/2022 81982-JEZMGVO NAIL, 6 OR MORE 04/11/2022 89757-PTXUOXU NAIL, 6 OR MORE 07/15/2022 16018-FGPONHD NAIL, 6 OR MORE 10/21/2022 38115-LUDCDRA NAIL, 6 OR MORE 01/23/2023 29006-ZAYVLMN NAIL, 6 OR MORE 04/28/2023 40085-IZWNDVO NAIL, 6 OR MORE 08/07/2023 95190-JMREHYK NAIL, 6 OR MORE 10/30/2023 32774-Gkoxfjrd Plate 08/07/2023 90640-Vjgglnod Plate 04/11/2022 24643-Jfepcfta Plate 09/24/2021 06586-Apoaamtf Plate Each Additional 06775- Debride <25 sq cm 09/24/2021 74581- Debride <25 sq cm 06/18/2021 82979- Debride <25 sq cm 07/15/2022 97549- Debride <25 sq cm 07/07/2025 90872-KAZKVKW SKIN/TISSUE 06/20/2025 77717-FFLQVOS SKIN/TISSUE 02/17/2025 18283-HBGWNQI SKIN/TISSUE 03/03/2025 12177-NBZW SKIN LESIONS, OVER 4 03/14/20 59273-ULDT SKIN LESIONS, OVER 4 06/20/20 25 54304-UUSZ SKIN LESIONS, OVER 4 12/20/19 25 25625-LUHQ SKIN LESIONS, OVER 4 09/02/20 24 14737-PJZE SKIN LESIONS, OVER 4 06/03/20 19253-AUUX SKIN LESIONS, OVER 4 03/11/20 24 62799-YPUY SKIN LESIONS, OVER 4 10/21/20 22 11521-DTFZ SKIN LESIONS, OVER 4 07/15/20 22 44036-BXZD SKIN LESIONS, OVER 4 04/28/20 23 77978-NJWK SKIN LESIONS, OVER 4 01/24/20 23 90178-LWVQ SKIN LESIONS, OVER 4 09/25/20 20 38785-HHGE SKIN LESIONS, OVER 4 08/07/20 23 10141-AJGN SKIN LESIONS, OVER 4 01/08/20 24 27231-DQYJ SKIN LESIONS, OVER 4 10/30/20 23 15710-MCWZ SKIN LESIONS, OVER 4 09/24/20 21 89800-KLYC SKIN LESIONS, OVER 4 06/18/20 21 54337-UGGN SKIN LESIONS, OVER 4 03/19/20 21 29873-CMWP SKIN LESIONS, OVER 4 12/25/19 47444-UZJB SKIN LESIONS, OVER 4 01/07/20 22 21021-CFPN SKIN LESIONS, OVER 4 04/11/20 22 Insurance Providers Payer Name Payer Address Payer Phone Subscriber Number Group Number Insured Name Patient Relationship to Insured Coverage Start Date Coverage End Date [facility] [employer] Claims [address] [place] [id number] Flex Mejia Self - patient is the insured Medical (General) History Medical History History ICD Code Cataracts type II diabetes High blood pressure keloids Numbness Vascular grafts Joint implants/screws Transfusions Other hammer toe(s) (acquired), right fo ot M20.41 Other hammer toe(s) (acquired), left eliezer t M20.42 Surgical History Surgery Date(Month/Year) spinal surgery/ cervical 09/1998 foot surgery/ right foot 1974 spinal surgery/ cervical 08/1998 appendectomy 2017 R eye cataract surgery/ Glaucoma 12/02/22 Oral surgery 06/17 Hospitalization History Reason Date(Month/Year) [facility]- Childhood hernia [facility]- heelcordectomy 1967 [facility]- 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
--- OUTSIDE RECORDS SUMMARY | 2025-11-08 09:19 | XMS_ITS | Encounter Summary ---
Author Organization [employer] Address [address] [place] [address] Care Team Providers Care Supervisor Car Installations Name Role Phone Samia Acosta MD Primary Care Provider + Encounter Details Date Type Department Care Team (Late st Contact Info) Description 09/22/2025 Lab Requisition [facility] - Main Lab 299 [facility] [place] [address] Samia Acosta MD [address] [phone] Hematuria, unspecified Social History Tobacco Use Types Packs/Day [...] Procedure Name Priority Date/Time Associated Diagnosis Comments URINALYSIS WITH REFLEX MICROSCOPIC Routine 09/22/2025 2:00 PM EDT Hematuria, unspecified URINALYSIS WITH REFLEX MICROSCOPIC Routine 09/22/2025 2:00 PM EDT Hematuria, unspecified CULTURE URINE Routine 09/22/2025 2:00 PM EDT Hematuria, unspecified documented in this encounter Results * (ABNORMAL) Urinalysis with reflex microscopic (09/22/2025 2:00 PM EDT) Specific [place] Urine 1.030 1.003 - 1.030 LAB URINALYSIS - AUTOMATED METHOD 09/22/2025 3:55 PM EDT [facility] pH, Urine 5.5 5.0 - 8.0 pH LAB URINALYSIS - AUTOMATED METHOD 09/22/2025 3:[address] [facility] Leukocytes, Urine Small(A) Negative LAB URINALYSIS - AUTOMATED METHOD 09/22/2025 3:[address] [facility] Nitrite, Urine Negative Negative LAB URINALYSIS - AUTOMATED METHOD 09/22/2025 3:[address] [facility] Protein, Urine 300(A) <=Trace mg/dL LAB URINALYSIS - AUTOMATED METHOD 09/22/2025 3:[address] [facility] Glucose, Urine >=1000(A) Negative mg/dL LAB URINALYSIS - AUTOMATED METHOD 09/22/2025 3:[address] [facility] Ketones, Urine Trace(A) Negative mg/dL LAB URINALYSIS - AUTOMATED METHOD 09/22/2025 3:[address] [facility] Urobilinogen , Urine 1.0 0.2 - 1.0 mg/dL LAB URINALYSIS - AUTOMATED METHOD 09/22/2025 3:[address] [facility] Bilirubin, Urine Small(A) Negative LAB URINALYSIS - AUTOMATED METHOD 09/22/2025 3:[address] [facility] Blood, Urine Large(A) Negative LAB URINALYSIS - AUTOMATED METHOD 09/22/2025 3:[address] [facility] RBC, Urine 1,078.5(H) 0 - 4 /HPF LAB URINALYSIS - AUTOMATED METHOD 09/22/2025 3:[address] [facility] WBC, Urine 144.2(H) 0 - 4 /HPF LAB URINALYSIS - AUTOMATED METHOD 09/22/2025 3:[address] [facility] Squamous Epithelial, Urine 5 0 - 60 /LPF LAB URINALYSIS - AUTOMATED METHOD 09/22/2025 3:[address] [facility] Bacteria, Urine Negative Negative /HPF LAB URINALYSIS - AUTOMATED METHOD 09/22/2025 3:55 PM EDT [facility] Hyaline Casts, Urine 11.2(H) 0 - 3 /LPF LAB URINALYSIS - AUTOMATED METHOD 09/22/2025 3:55 PM EDT [facility] Urine Urine specimen obtained by clean catch procedure / Unknown 09/22/2025 2:00 PM EDT 09/22/2025 3:51 PM EDT us Samia Acosta MD LAB URINE ORDERABLES Fin al Result Performing Organization Address City/[facility]/ZIP Co de Phone Number [facility] [address] [place] [address], [place] [phone] * Culture urine (09/22/2025 2:00 PM EDT) Culture, Urine <10,000 CFU/mL gram positive cocci, insignificant count, no further workup 09/24/2025 11:11 AM EDT [facility] Urine Urine specimen obtained by clean catch procedure / Unknown 09/22/2025 2:00 PM EDT 09/22/2025 3:51 PM EDT Narrative [facility] - 09/24/2025 11:11 AM EDT 5000 CFU/mL us Samia Acosta MD LAB MICROBIOLOGY - GENER AL ORDERABLES Final Result Performing Organization Address City/[facility]/ZIP Co de Phone Number [facility] [address] [place] [address], [place] [phone] documented in this encounter Visit Diagnoses Diagnosis Hematuria, unspecified documented in this encounter Care Teams Supervisor Car Installations Relationship Specialty Start Date End Date Samia Acosta MD [address] [phone] PCP - General Family Medicine 09/20/25 documented as of this encounter
== END 2025-11-08 10:00 | disposition home or self-care (01) ==
LOC: HO.HUSH 08:40
PROVIDERS: PCP Internal Medicine; Visit Provider Urology
DX: R33.9 Retention of urine, unspecified (principal); N40.0 Benign prostatic hyperplasia without lower urinary tract symptoms
CPT/HCPCS: 99204

== ENCOUNTER → 2025-11-08 08:39 | Outpatient (BNVA) | payer OTHER, SELFPAY | PROVIDERS: PCP Internal Medicine; Visit Provider Urology | DX: N40.1 Benign prostatic hyperplasia with lower urinary tract symptoms (principal); R33.9 Retention of urine, unspecified | CPT/HCPCS: 51700; 51798; 99202 ==